=== PATIENT | male | born 1965 | race Caucasian/White ===

== ENCOUNTER 2017-08-21 10:29 | Emergency (ER) | payer OTHER ==
[~2017-08-21] VITALS: Ht 185.4 cm; Wt 106.6 kg
[~2017-08-21 10:29] MED LIST: ADULT LOW DOSE81 MG PO; AUGMENTIN 875875 MG PO; BACTRIM DS TAB1 EACH PO; CARDIZEM120 MG PO; CEFDINIR300 MG PO; CIPROFLOXACIN500 M3 OR; CRESTOR10 MG; FLOMAX0.4 MG PO; GLUCOPHAGE XR500 MG; HYDROCODON-ACE1 EAC7 PO; HYDROCODONE; IBUPROFEN 800800 M1 PO; KEFLEX500 M1 PO; LIPITOR20 MG; LOPRESSOR 50 MG50 M1 PO; LOPRESSOR25; LOPRESSOR25 PO; METFORMIN HCL500 MG PO; NAPROSYN500 MG PO; NIASPAN 500 MG500 M1; NORCO 5-325 TA1 EACH PO; NYSTATIN PO; OMEPRAZOLE; PROTONIX PO; VICODIN; VICODIN 5-5001 EACH PO; WELCHOL; ZANTAC; ZANTAC 150MG T150 MG PO; ZOCOR 20 MG TAB20 M1; ZOFRAN 4 MG ORAL4 M1 DIS; ZOFRAN4 MG PO
[2017-08-21 10:55] LABS: ABSOLUTE BASOPHILS 0.1 thou/uL (0.0-0.2); ABSOLUTE EOSINOPHILS 0.3 thou/uL (0.0-0.7); ABSOLUTE LYMPHOCYTES 1.9 thou/uL (0.8-5.3); ABSOLUTE MONOCYTES 0.4 thou/uL (0.0-1.2); ABSOLUTE NEUTROPHILS 3.9 thou/uL (1.6-8.1); BASOPHILS 0.8 %; EOSINOPHILS 3.9 %; HEMATOCRIT 46.8 % (42.0-52.0); HEMOGLOBIN 15.7 gm/dL (14.0-18.0); LYMPHOCYTES 28.7 %; MCH 30.8 pg (26.0-34.0); MCHC 33.5 g/dL (28.0-37.0); MONOCYTES 6.6 %; MPV 7.6 fl. (7.2-11.1); NUCLEATED RBCS 0 /100WBC; PLATELET COUNT* 225 thou/uL (150-400); RBC 5.09 mil/uL (4.50-6.00); RDW-CV 12.9 % (10.5-14.5); WBC 6.5 thou/uL (4.0-11.0)
[2017-08-21 11:09] LABS: CALCIUM 8.9 mg/dL (8.5-10.1)
[2017-08-21 11:14] LABS: ALBUMIN 3.8 g/dL (3.4-5.0); TOTAL BILIRUBIN 0.4 mg/dL (<0.1-1.0); TOTAL PROTEIN 7.3 g/dL (6.4-8.2)
[2017-08-21 11:49] LABS: URINE BLOOD 3+ (Negative); URINE CLARITY CLEAR; URINE COLOR YELLOW; URINE GLUCOSE-RANDOM NEGATIVE (Negative); URINE KETONES NEGATIVE (Negative); URINE LEUKOCYTES-REFLEX NEGATIVE (Negative); URINE NITRITE-REFLEX NEGATIVE (Negative); URINE PROTEIN 2+ (Negative); URINE SPECIFIC GRAVITY 1.025 (1.005-1.030); URINE UROBILINOGEN 0.2 E.U./dl (0.2-1.0)
[2017-08-21 11:52] LABS: BACTERIA-REFLEX 1-9 Few /HPF (None Seen); CASTS None Seen /LPF (None Seen); CRYSTALS None Seen /LPF (None Seen); ICTOTEST (BILI CONFIRMATORY) Negative (Negative); MUCUS None Seen strn/LPF (None Seen); SQUAMOUS 0-3 Few /LPF (0-3); URINE BILIRUBIN 1+ (Negative); URINE RBC >20 Many /HPF (0-2); URINE WBC-REFLEX 0-5 Rare /HPF (0-5)
[2017-08-21] MEDS ORDERED: FLOMAX0.4 MG PO (13:12)
[2017-08-21 13:25] VITALS: BP 116/73
== END 2017-08-21 13:28 | disposition home or self-care (01) ==
LOC: M.ERS 10:29
PROVIDERS: Physician Assistant Surgical
DX: N20.0 Calculus of kidney (principal); F17.210 Nicotine dependence, cigarettes, uncomplicated; Z90.49 Acquired absence of other specified parts of digestive tract

== ENCOUNTER 2018-03-28 19:19 | Emergency (ER) | payer OTHER ==
[~2018-03-28] VITALS: Ht 185.4 cm; Wt 108.9 kg
[2018-03-28] MEDS ORDERED: NORCO 5-325 TA1 EACH PO (19:33)
[2018-03-28 20:20] VITALS: BP 114/64
== END 2018-03-28 20:20 | disposition home or self-care (01) ==
LOC: M.ERS 19:19
DX: S50.02XA Contusion of left elbow, initial encounter (principal); K76.0 Fatty (change of) liver, not elsewhere classified; F17.210 Nicotine dependence, cigarettes, uncomplicated; Z90.49 Acquired absence of other specified parts of digestive tract; X58.XXXA Exposure to other specified factors, initial encounter; Y93.89 Activity, other specified; Y92.89 Other specified places as the place of occurrence of the external cause; Y99.8 Other external cause status

== ENCOUNTER 2019-01-30 16:56 | Emergency (ER) | payer OTHER ==
[~2019-01-30] VITALS: Ht 185.4 cm; Wt 104.3 kg
[2019-01-30] MEDS ORDERED: PRILOSEC OTC20 MG PO (17:18)
[2019-01-30 19:14] VITALS: BP 125/80
== END 2019-01-30 19:15 | disposition home or self-care (01) ==
LOC: M.ERS 16:56
DX: S82.142A Displaced bicondylar fracture of left tibia, initial encounter for closed fracture (principal); F17.210 Nicotine dependence, cigarettes, uncomplicated; Z90.49 Acquired absence of other specified parts of digestive tract; X50.1XXA Overexertion from prolonged static or awkward postures, initial encounter; Y93.89 Activity, other specified; Y92.89 Other specified places as the place of occurrence of the external cause; Y99.8 Other external cause status

== ENCOUNTER 2019-04-20 16:40 | Emergency (ER) | payer OTHER ==
[~2019-04-20] VITALS: Ht 195.6 cm; Wt 106.6 kg
[~2019-04-20 16:40] MED LIST changes: +PRILOSEC OTC20 MG PO
[2019-04-20] MEDS ORDERED: ZPAK PO (17:22)
[2019-04-20] MEDS ORDERED: PREDNISONE 20 M20 M1 PO (17:22)
[2019-04-20] MEDS ORDERED: VENTOLIN HFA 1818 GM INH (17:22)
[2019-04-20 17:28] VITALS: BP 119/79
[2019-04-20 17:50] LABS: INFLUENZA A ANTIGEN Negative (Negative); INFLUENZA B ANTIGEN Negative (Negative)
== END 2019-04-20 17:29 | disposition home or self-care (01) ==
LOC: M.ERS 16:40
PROVIDERS: Family Medicine
DX: J40 Bronchitis, not specified as acute or chronic (principal); F17.210 Nicotine dependence, cigarettes, uncomplicated; Z90.49 Acquired absence of other specified parts of digestive tract

== ENCOUNTER 2020-06-10 17:01 | Emergency (ER) | payer OTHER ==
[~2020-06-10] VITALS: Ht 185.4 cm; Wt 102.5 kg
[~2020-06-10 17:01] MED LIST changes: +PREDNISONE 20 M20 M1 PO; +VENTOLIN HFA 1818 GM INH; +ZPAK PO
[2020-06-10 18:10] VITALS: BP 124/96
== END 2020-06-10 18:10 | disposition home or self-care (01) ==
LOC: M.ERS 17:01
DX: S80.01XA Contusion of right knee, initial encounter (principal); F17.210 Nicotine dependence, cigarettes, uncomplicated; Z90.49 Acquired absence of other specified parts of digestive tract; W01.0XXA Fall on same level from slipping, tripping and stumbling without subsequent striking against object, initial encounter; Y93.89 Activity, other specified; Y92.89 Other specified places as the place of occurrence of the external cause; Y99.8 Other external cause status

== ENCOUNTER 2020-09-19 23:38 | Emergency (ER) | payer OTHER ==
[~2020-09-19] VITALS: Ht 182.9 cm; Wt 102.1 kg
[2020-09-20 00:59] LABS: ABSOLUTE EOSINOPHILS 0.2 thou/uL (0.0-0.7); ABSOLUTE LYMPHOCYTES 1.9 thou/uL (0.8-5.3); ABSOLUTE MONOCYTES 0.7 thou/uL (0.0-1.2); ABSOLUTE NEUTROPHILS 9.3 thou/uL (1.6-8.1); BASOPHILS 0.4 %; EOSINOPHILS 1.4 %; HEMATOCRIT 49.3 % (42.0-52.0); HEMOGLOBIN 16.9 gm/dL (14.0-18.0); LYMPHOCYTES 15.9 %; MCH 31.2 pg (26.0-34.0); MCHC 34.4 g/dL (28.0-37.0); MCV 90.7 fL (80.0-100.0); MONOCYTES 6.1 %; MPV 7.5 fl. (7.2-11.1); NUCLEATED RBCS 0 /100WBC; PLATELET COUNT* 228 thou/uL (150-400); POLYS 76.2 %; RBC 5.44 mil/uL (4.50-6.00); RDW-CV 13.1 % (10.5-14.5); WBC 12.2 thou/uL (4.0-11.0)
[2020-09-20 01:09] LABS: CALCIUM 8.5 mg/dL (8.5-10.1); POTASSIUM 4.2 mmol/L (3.5-5.1)
[2020-09-20 01:14] LABS: ALBUMIN 4.3 g/dL (3.4-5.0); TOTAL BILIRUBIN 0.8 mg/dL (<0.1-1.0); TOTAL PROTEIN 7.8 g/dL (6.4-8.2)
[2020-09-20] MEDS ORDERED: FLAGYL500 M1 PO (03:39)
[2020-09-20] MEDS ORDERED: ZOFRAN ODT4 MG PO (03:39)
[2020-09-20 03:56] VITALS: BP 140/82
== END 2020-09-20 03:58 | disposition home or self-care (01) ==
LOC: M.ERS 23:38
PROVIDERS: Emergency Medicine
DX: R11.2 Nausea with vomiting, unspecified (principal); R19.7 Diarrhea, unspecified; R53.83 Other fatigue; Z20.822 Contact with and (suspected) exposure to COVID-19; F17.210 Nicotine dependence, cigarettes, uncomplicated; I25.2 Old myocardial infarction; Z79.82 Long term (current) use of aspirin; Z79.84 Long term (current) use of oral hypoglycemic drugs; Z79.899 Other long term (current) drug therapy; Z90.49 Acquired absence of other specified parts of digestive tract; Z98.890 Other specified postprocedural states

== ENCOUNTER 2020-12-11 22:24 | Emergency (ER) | payer OTHER ==
[~2020-12-11] VITALS: Ht 188 cm; Wt 99.8 kg
[~2020-12-11 22:24] MED LIST changes: +FLAGYL500 M1 PO; +ZOFRAN ODT4 MG PO
[2020-12-11 23:31] LABS: ABSOLUTE EOSINOPHILS 0.2 thou/uL (0.0-0.7); ABSOLUTE LYMPHOCYTES 1.8 thou/uL (0.8-5.3); ABSOLUTE MONOCYTES 0.6 thou/uL (0.0-1.2); ABSOLUTE NEUTROPHILS 3.6 thou/uL (1.6-8.1); BASOPHILS 0.6 %; EOSINOPHILS 3.6 %; HEMATOCRIT 45.6 % (42.0-52.0); HEMOGLOBIN 15.8 gm/dL (14.0-18.0); LYMPHOCYTES 28.9 %; MCHC 34.6 g/dL (28.0-37.0); MCV 89.6 fL (80.0-100.0); MONOCYTES 9.8 %; MPV 6.9 fl. (7.2-11.1); NUCLEATED RBCS 0 /100WBC; PLATELET COUNT* 236 thou/uL (150-400); POLYS 57.1 %; RBC 5.09 mil/uL (4.50-6.00); RDW-CV 13.2 % (10.5-14.5); WBC 6.4 thou/uL (4.0-11.0)
[2020-12-12 00:31] LABS: CALCIUM 8.6 mg/dL (8.5-10.1); CREATININE 0.9 mg/dL (0.6-1.3); POTASSIUM 3.9 mmol/L (3.5-5.1)
[2020-12-12 00:36] LABS: ALBUMIN 3.7 g/dL (3.4-5.0); TOTAL BILIRUBIN 0.4 mg/dL (<0.1-1.0); TOTAL PROTEIN 7.2 g/dL (6.4-8.2)
[2020-12-12 01:20] VITALS: BP 110/81
--- NOTE | 2020-12-12 09:55 | EKG ---
[place] [address] ELECTROCARDIOGRAM REPORT Name: AMELIA SEPULVEDA Room: [facility]#: [id number] Admission: 12/11/20 Attend Phys: Discharge: 12/12/20 Date of : 63 Date of Service: 12/11/20 224 Report #: [id number] THIS REPORT FOR: //name// [facility] ED Test Date: 2020-12-11 Test Time: 22:47:31 Pat Name: AMELIA SEPULVEDA Department: Room: Gender: Operations Intern: [place] : 1965 Requested By: Monse Segura Order Number: [id number] MD: Dean Machado Measurements Intervals [place] Rate: 86 P: 64 IL: 182 QRS: 120 QRSD: 100 T: 33 QT: 385 QTc: 461 Interpretive Statements Sinus rhythm Incomplete right bundle branch block Inferior Q waves noted Baseline wander in lead(s) V2 Compared to ECG 12/16/2014 23:04:14 No significant changes noted Electronically Signed On 12-12-2020 9:55:11 CDT by Dean Machado [email or web address] <ELECTRONICALLY SIGNED> By: Dean Machado MD, FACC 12/12/20 [id number] Dean Machado MD, FACC /EPI
== END 2020-12-12 01:21 | disposition home or self-care (01) ==
LOC: M.ERS 22:24
PROVIDERS: Emergency Medicine
DX: R25.1 Tremor, unspecified (principal); Z20.822 Contact with and (suspected) exposure to COVID-19; F17.210 Nicotine dependence, cigarettes, uncomplicated; Z90.49 Acquired absence of other specified parts of digestive tract; Z79.82 Long term (current) use of aspirin; Z79.899 Other long term (current) drug therapy

== ENCOUNTER 2021-02-16 03:12 | Emergency (ER) | payer OTHER ==
[~2021-02-16] VITALS: Ht 185.4 cm; Wt 97.5 kg
[2021-02-16] MEDS ORDERED: MILK THISTLE140 M2 PO (03:25)
[2021-02-16] MEDS ORDERED: TORADOL 10 MG T10 MG PO (06:23)
[2021-02-16] MEDS ORDERED: NORFLEX100 MG PO (06:23)
[2021-02-16] MEDS ORDERED: HYDROCODON-ACE1 EAC7 PO (06:23)
[2021-02-16 06:47] VITALS: BP 145/87
== END 2021-02-16 06:47 | disposition home or self-care (01) ==
LOC: M.ERS 03:12
DX: S22.31XA Fracture of one rib, right side, initial encounter for closed fracture (principal); S13.9XXA Sprain of joints and ligaments of unspecified parts of neck, initial encounter; S01.01XA Laceration without foreign body of scalp, initial encounter; M54.2 Cervicalgia; M79.644 Pain in right finger(s); M79.651 Pain in right thigh; R51.9 Headache, unspecified; M79.642 Pain in left hand; F17.210 Nicotine dependence, cigarettes, uncomplicated; I25.2 Old myocardial infarction; Z98.890 Other specified postprocedural states; Z90.49 Acquired absence of other specified parts of digestive tract; Z79.82 Long term (current) use of aspirin; Z79.899 Other long term (current) drug therapy; Z91.011 Allergy to milk products; V89.2XXA Person injured in unspecified motor-vehicle accident, traffic, initial encounter; Y93.I9 Activity, other involving external motion; Y92.488 Other paved roadways as the place of occurrence of the external cause; Y99.8 Other external cause status; S60.012A Contusion of left thumb without damage to nail, initial encounter